=== PATIENT | female | born 1990 | race African-American/Black ===

== ENCOUNTER 2024-05-11 08:45 | Emergency (ER) | payer BC ==
[2024-05-11 09:30] LABS: APPEARANCE,URINE CLOUDY; BILIRUBIN,URINE NEGATIVE (NEGATIVE); COLOR,URINE YELLOW; GLUCOSE,URINE NEGATIVE (NEGATIVE); KETONES,URINE NEGATIVE (NEGATIVE); LEUKOCYTE ESTERASE,URINE SMALL (NEGATIVE); NITRITE,URINE POSITIVE (NEGATIVE); OCCULT BLOOD,URINE MODERATE (NEGATIVE); PROTEIN,URINE NEGATIVE (NEGATIVE); UROBILINOGEN,URINE 0.2 EU/dL (<2.0)
[2024-05-11 09:44] LABS: BACTERIA,URINE 3+ (NEGATIVE); EPITHELIAL CELLS,URINE MANY (NONE-FEW); RBC,URINE 30-40 (0-2/HPF); WBC,URINE 20-30 (0-5/HPF)
== END 2024-05-11 10:09 | disposition home or self-care (01) ==
LOC: MW.ED 08:45
DX: N39.0 Urinary tract infection, site not specified (principal)
CPT/HCPCS: 81001; 81025; 87086; 87088; 87186; 99283